=== PATIENT | male | born 1975 | race Caucasian/White ===

== ENCOUNTER 2024-12-12 10:15 | Emergency (ER) | payer OTHER ==
[~2024-12-12] VITALS: Ht 175.3 cm; Wt 97.2 kg
[2024-12-12] MEDS: ACETAMINOPHEN 500 MG TAB PO ONE (13:00)
[2024-12-12] MEDS ORDERED: CEPH500C PO (14:01)
[2024-12-12 14:09] VITALS: BP 161/95; TEMP 99.1; O2SAT 99
== END 2024-12-12 14:23 | disposition home or self-care (01) ==
LOC: M ED 10:15
DX: S10.96XA Insect bite of unspecified part of neck, initial encounter (principal); F17.200 Nicotine dependence, unspecified, uncomplicated; Z79.2 Long term (current) use of antibiotics; Y93.89 Activity, other specified; Y92.9 Unspecified place or not applicable; Y99.9 Unspecified external cause status